=== PATIENT | female | born 1970 | race Caucasian/White ===

== ENCOUNTER → 2018-07-16 | Outpatient (CLI) | payer SELFPAY ==
--- NOTE | 2018-07-16 11:16 | RADIOLOGY IMAGING REPORT ---
FACILITY: [facility] PATIENT NAME: Justa Novak : 1970 MR: [id number] V: [id number] EXAM DATE: ORDERING PHYSICIAN: HAY WITT TECHNOLOGIST: Location: [facility] Patient: Justa Novak : 1970 Visit/Account:[id number] Date of Sevice: 07/16/2018 LUMBAR SPINE 2 OR 3 VIEW Indication: Low back pain Comparison: None Findings: The vertebral bodies and posterior elements are intact. Disc spaces are normal. Facets ar e unremarkable. There are surgical clips along the midline of the lower abdomen. IMPRESSION: Negative lumbar spine radiograph. Report Dictated By: Ashish Reed at 07/16/2018 11:11 AM Report E-Signed By: Ashish Reed at 07/16/2018 11:12 AM WSN:[id number]
== END ==
LOC: RAD 10:17
PROVIDERS: ATTEND Family Medicine
DX: M54.5 Low back pain (principal)
CPT/HCPCS: 72100